=== PATIENT | male | born 1980 | race Two or more races ===

== ENCOUNTER 2025-07-04 21:46 | Emergency (ER) | payer BC ==
[~2025-07-04] VITALS: Ht 177.8 cm; Wt 70.3 kg
[2025-07-04] MEDS: IV NS 0.9% 1,000 ML BAG IV ONE (22:57)
[2025-07-04 23:02] LABS: PLATELET COUNT (AUTO) 170 K/uL (150-450); RED BLOOD CELL COUNT(AUTO) 4.96 MIL/uL (4.5-6.0); RED CELL DISTRIBUTION WIDTH 12.9 % (11.5-15.0); WHITE BLOOD COUNT (AUTO) 3.5 K/uL (4.3-11.0)
[2025-07-04 23:21] LABS: ASPARTATE AMINOTRANSFERASE 15.0 U/L (15-37); CALCIUM, SERUM 8.9 mg/dL (8.5-10.1); CREATININE 0.9 mg/dL (0.6-1.3); SODIUM SERUM 141.0 mmol/L (136-145); TOTAL PROTEIN, SERUM 7.4 g/dL (6.4-8.2); UREA NITROGEN, BLOOD 20.0 mg/dL (7-18)
[2025-07-05 00:15] LABS: LYMPHOCYTES % (MANUAL) 28 % (16-48); MONOCYTES % (MANUAL) 15 % (0-11.0)
[2025-07-05 00:16] LABS: EOSINOPHILS % (MANUAL) 5 % (0-4); NEUTROPHILS % (MANUAL) 52 (42-76); PLATELET ESTIMATE ADEQUATE
[2025-07-05 02:12] VITALS: BP 132/70; TEMP 98.1; O2SAT 98
== END 2025-07-05 02:12 | disposition home or self-care (01) ==
LOC: ER 21:52
DX: U07.1 COVID-19 (principal); R42 Dizziness and giddiness
CPT/HCPCS: 99285; 96360; 71045; 84145; 85027; 83735; 85007; 36415; 80053; 86140; 93005; J7030